=== PATIENT | male | born 1955 | race Asian ===

== ENCOUNTER 2018-09-12 08:39 | Day surgery (SDC) | payer BC, OTHER ==
[2018-09-10 15:46] VITALS: BMI 21.6
[2018-09-12 10:04] VITALS: TEMP 97
[2018-09-12 10:59] VITALS: BP 117/76; PULSE 58
--- NOTE | 2018-09-15 17:01 | PATH ---
Surgical Pathology Report Patient Name: LILY ANDERSON [facility]. Rec. #: [id number] /Age/Gender: 1955 (Age: 62) / M Account: [id number] Location: [facility]-ENDOSCOPY Taken: 09/12/2018 Received: 09/12/2018 Reported: 09/15/2018 Physicians: Jeff Parisi M.D. Specimen(s) Received BX CECUM Clinical History Rectal bleeding, adenoma surveillance Postoperative diagnosis: Cecal polyps, diverticulosis, hemorrhoids Final Diagnosis CECUM, POLYPS, POLYPECTOMY: TUBULAR ADENOMA(S). SEPARATE FRAGMENTS OF POLYPOID COLONIC MUCOSA WITH LYMPHOID AGGREGATE. Electronically Signed Galilea Hi M.D. Gross Description Received in formalin, labeled "polyps cecum" are 7 meadows, irregular portions of soft tissue ranging from 0.1-0.4 cm. in greatest dimension. The specimens are submitted in toto in one cassette. /09/12/2018 saudi09/12/2018
== END 2018-09-12 11:01 | disposition home or self-care (01) ==
LOC: JASU-ENDO 08:39
PROVIDERS: ATTEND Internal Medicine Gastroenterology
PROC: 0DBH8ZX Excision of Cecum, Via Natural or Artificial Opening Endoscopic, Diagnostic (ICD-10-PCS; principal; 2018-09-12 08:45)
DX: Z12.11 Encounter for screening for malignant neoplasm of colon (principal); Z86.010 Personal history of colon polyps; K92.1 Melena; D12.0 Benign neoplasm of cecum; K64.8 Other hemorrhoids; K57.30 Diverticulosis of large intestine without perforation or abscess without bleeding
CPT/HCPCS: 88305-TC